=== PATIENT | female | born 1970 | race Two or more races ===

== ENCOUNTER 2024-08-03 22:34 | Emergency (ER) | payer OTHER ==
[~2024-08-03] VITALS: Ht 152.4 cm; Wt 59.5 kg
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
[2024-08-04 00:49] VITALS: BP 134/74; PULSE 66; RESP 19; TEMP 97.9; O2SAT 98
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
== END 2024-08-04 02:12 | disposition home or self-care (01) ==
LOC: ER 22:34
DX: S13.4XXA Sprain of ligaments of cervical spine, initial encounter (principal); S29.012A Strain of muscle and tendon of back wall of thorax, initial encounter; V49.9XXA Car occupant (driver) (passenger) injured in unspecified traffic accident, initial encounter; Y93.89 Activity, other specified; Y92.410 Unspecified street and highway as the place of occurrence of the external cause; Y99.8 Other external cause status
CPT/HCPCS: 72040; 72070